=== PATIENT | male | born 1985 | race Caucasian/White ===

== ENCOUNTER 2017-04-26 13:28 | Emergency (ER) | payer OTHER ==
[2017-04-26 14:06] VITALS: BP 119/71; PULSE 60; TEMP 98.9; BMI 27.3
[2017-04-26] MEDS ORDERED: KETOROLAC TROMETHAMINE 60 MG/2 ML VIAL IM ONE (15:01)
[2017-04-26] MEDS ORDERED: KETOROLAC TROMETHAMINE 60 MG/2 ML VIAL ONE (15:01)
[2017-04-26] MEDS ORDERED: METHOCARBAMOL 500 MG TABLET PO ONE (15:01)
[2017-04-26] MEDS ORDERED: METHOCARBAMOL 500 MG TABLET ONE (15:05)
--- NOTE | 2017-04-26 15:07 | PDOC ---
History of Present Illness - General History Source: Patient <Ke Winchester - Last Filed: 04/26/17 15:07> - History of Present Illness Initial Comments: 04/26/17 15:18 Patient 31 M, with no significant PMHx, who presents with 10 days of lower back pain. Patient states that 2 weeks ago he experienced a bad cough, and believes that this exacerbated that his back pain. Patient works as an office dispatcher. He plays basketball recreationally. <Ayla Prado - Last Filed: 04/26/17 15:18> <Herminio Chairez - Last Filed: 04/26/17 15:58> - General Chief Complaint: Back Pain Stated Complaint: LOW BACK PAIN Time Seen by Provider: 04/26/17 13:46 Past History - Past Medical History COPD: No - Immunization History Immunization Up to Date: Yes - Suicide/Smoking/Psychosocial Hx Smoking Status: No Smoking History: Never smoked Number of Cigarettes Smoked Daily: 0 Hx Alcohol Use: No Drug/Substance Use Hx: No Substance Use Type: None <Ke Winchester - Last Filed: 04/26/17 15:07> <Ayla Prado - Last Filed: 04/26/17 15:18> <Herminio Chairez - Last Filed: 04/26/17 15:58> - Past Medical History Allergies/Adverse Reactions: Allergies Allergy/AdvReac Type Severity Reaction Status Date / Time No Known Allergies Allergy Verified 04/26/17 14:01 Home Medications: Ambulatory Orders Methocarbamol 500 mg PO TID #21 tablet 04/26/17 *Physical Exam - Vital Signs Last Vital Signs Temp Pulse Resp BP Pulse Ox 98.9 F 60 18 119/71 99 04/26/17 13:28 04/26/17 13:28 04/26/17 13:28 04/26/17 13:28 04/26/17 13:28 <Ke Winchester - Last Filed: 04/26/17 15:07> - Vital Signs Last Vital Signs Temp Pulse Resp BP Pulse Ox 98.9 F 60 18 119/71 99 04/26/17 13:28 04/26/17 13:28 04/26/17 13:28 04/26/17 13:28 04/26/17 13:28 - Physical Exam Comments: 04/26/17 15:19 GENERAL: Well developed, well nourished. Awake and alert. In no acute distress. HEENT: Normocephalic, atraumatic. PERRLA, EOMI. No conjunctival pallor. Sclera are non- icteric. Moist mucous membranes. Oropharynx is clear. NECK: Supple. Full ROM. No thyromegaly. No lymphadenopathy. CARDIOVASCULAR: Regular rate and rhythm. PULMONARY: Lungs clear to auscultation bilaterally. ABDOMINAL: Soft. Non-tender. Non-distended. No rebound or guarding. No organomegaly. Normoactive bowel sounds. MUSCULOSKELETAL Right sided lumbar paraspinal tenderness. No CVA tenderness. EXTREMITIES: No cyanosis. No clubbing. No edema. No calf tenderness. Positive straight leg test on right. SKIN: Warm and dry. Normal capillary refill. No rashes. No jaundice. NEUROLOGICAL: Alert, awake, appropriate. Cranial nerves 2-12 intact. No deficits to light touch and temperature in face, upper extremities and lower extremities. No motor deficits in the in face, upper extremities and lower extremities. Normoreflexic in the upper and lower extremities. Normal speech. Toes are downgoing bilaterally. No drop foot. Limitations to ROM of right leg, due to pain. Leg strength 5/5. PSYCHIATRIC: Cooperative. Good eye contact. Appropriate mood and affect. <Ayla Prado - Last Filed: 04/26/17 15:18> - Vital Signs Last Vital Signs Temp Pulse Resp BP Pulse Ox 98.9 F 60 18 119/71 99 04/26/17 13:28 04/26/17 13:28 04/26/17 13:28 04/26/17 13:28 04/26/17 13:28 <Herminio Chairez - Last Filed: 04/26/17 15:58> ED Treatment Course - Medications Given in the ED: ED Medications Discontinued Medications Generic Name Dose Route Start Last Admin Trade Name Freq PRN Reason Stop Dose Admin Ketorolac Tromethamine 60 mg 04/26/17 15:01 04/26/17 15:05 Toradol Injection - IM 04/26/17 15:02 60 mg ONCE ONE Administration Methocarbamol 1,500 mg 04/26/17 15:01 04/26/17 15:09 Robaxin - PO 04/26/17 15:02 1,500 mg ONCE ONE Administration <Ayla Prado - Last Filed: 04/26/17 15:18> - Medications Given in the ED: ED Medications Discontinued Medications Generic Name Dose Route Start Last Admin Trade Name Maribell PRN Reason Stop Dose Admin Ketorolac Tromethamine 60 mg 04/26/17 15:01 04/26/17 15:05 Toradol Injection - IM 04/26/17 15:02 60 mg ONCE ONE Administration Methocarbamol 1,500 mg 04/26/17 15:01 04/26/17 15:09 Robaxin - PO 04/26/17 15:02 1,500 mg ONCE ONE Administration <Herminio Chairez - Last Filed: 04/26/17 15:58> *DC/Admit/Observation/Transfer <Ke Winchester - Last Filed: 04/26/17 15:07> - Attestations Scribe Attestion: 04/26/17 15:24 Documentation prepared by Ayla Prado, acting as registered medical assistant for Ke Winchester MD. <Ayla Prado - Last Filed: 04/26/17 15:18> - Discharge Dispostion Admit: No <Herminio Chairez - Last Filed: 04/26/17 15:58> Diagnosis at time of Disposition: Back pain - Discharge Dispostion Disposition: HOME Condition at time of disposition: Good - Prescriptions Prescriptions: Methocarbamol 500 mg PO TID #21 tablet - Patient Instructions Printed Discharge Instructions: DI for Low Back Pain Additional Instructions: Please follow up with your primary care physician this week. Please return if you have any new, worsening or concerning symptoms. Please take ibuprofen and tylenol as directed on the label of each bottle. Please take the methocarbamol as a muscle relaxant.
== END 2017-04-26 16:08 | disposition home or self-care (01) ==
LOC: FER 13:28
PROC: 3E0233Z Introduction of Anti-inflammatory into Muscle, Percutaneous Approach (ICD-10-PCS; principal; 2017-04-26)
DX: M54.5 Low back pain (principal)
CPT/HCPCS: 99282-25